=== PATIENT | female | born 1970 ===

== ENCOUNTER 2017-09-10 15:59 | Emergency (ER) | payer BC ==
[2017-09-10 16:09] VITALS: TEMP 98.6
[2017-09-10] MEDS ORDERED: Naproxen 550 mg Tab PO STA (18:00)
--- NOTE | 2017-09-10 18:06 | C.PDOC ---
Time Seen by Provider: 09/10/17 17:33 Chief Complaint (Nursing): Flu-like Symptoms History Per: Patient Onset/Duration Of Symptoms: Days (6) Current Symptoms Are (Timing): Still Present Associated Symptoms: Fever, Sore Throat, Cough, Nasal Congestion, Diarrhea Severity: Moderate Additional History Per: Prior Records Past Medical History Reviewed: Historical Data, Nursing Documentation, Vital Signs Vital Signs: Last Vital Signs Temp 98.6 F 09/10/17 16:06 Pulse 75 09/10/17 16:06 Resp 18 09/10/17 16:06 BP 125/84 09/10/17 16:06 Pulse Ox 100 09/10/17 18:06 - Medical History PMH: Asthma, Cardia Arrhythmia (NO MEDS) Surgical History: Cholecystectomy Family History: States: Unknown Family Hx - Social History Hx Alcohol Use: No Hx Substance Use: No - Immunization History Hx Tetanus Toxoid Vaccination: No Hx Influenza Vaccination: No Hx Pneumococcal Vaccination: No Review Of Systems Except As Marked, All Systems Reviewed And Found Negative. Constitutional: Positive for: Malaise ENT: Positive for: Nose Congestion Cardiovascular: Negative for: Chest Pain Respiratory: Positive for: Cough. Negative for: Hemoptysis Gastrointestinal: Negative for: Vomiting, Abdominal Pain Genitourinary: Negative for: Dysuria Musculoskeletal: Negative for: Neck Pain, Back Pain Skin: Negative for: Rash Neurological: Positive for: Headache. Negative for: Weakness, Numbness Physical Exam - Physical Exam Appears: Non-toxic, No Acute Distress Skin: Normal Color, Warm, Dry, No Rash Head: Atraumatic, Normacephalic Eye(s): bilateral: Normal Inspection, PERRL, EOMI Ear(s): Bilateral: Normal Oral Mucosa: Moist, No Drooling, No Trismus Throat: Erythema, No Exudate, No Drooling, No Mass Neck: Normal ROM, Supple Cardiovascular: Rhythm Regular Respiratory: Normal Breath Sounds, No Accessory Muscle Use Gastrointestinal/Abdominal: Soft, No Tenderness Back: No CVA Tenderness Extremity: Normal ROM Neurological/Psych: Oriented x3, Normal Speech, Normal Motor, Normal Sensation ED Course And Treatment O2 Sat by Pulse Oximetry: 100 Pulse Ox Interpretation: Normal - Radiology CXR: Interpreted by Me, Viewed By Me CXR Interpretation: Yes: Other (Increased interstitial markings) Reassessment Condition: Improved Disposition Counseled Patient/Family Regarding: Studies Performed, Diagnosis, Need For Followup, Rx Given - Disposition Disposition: HOME/ ROUTINE Disposition Time: 18:30 Condition: STABLE Additional Instructions: Drink plenty of fluids. Follow up with your doctor. Return to the ER if you develop shortness of breath, not tolerating fluids, worsening of symptoms or if you have any other concerns. Prescriptions: Albuterol HFA [Ventolin HFA 90 mcg/actuation (8 g)] 2 puff IH Q4 PRN #1 unit PRN Reason: Cough And Congestion Azithromycin [Zithromax] 1 dose PO DAILY #1 pkt Naproxen [Naprosyn] 1 tab PO BID PRN #20 tab PRN Reason: Pain Oxymetazoline 0.05% [Oxymetazoline HCl 30 Ml] 2 sprays NS BID #1 bottle Instructions: Acute Bronchitis (ED) Forms: [facility] ([place]) - Clinical Impression Clinical Impression: Influenza-like illness, Acute bronchitis
[2017-09-10] MEDS ORDERED: Naproxen 550 mg Tab PO ONE (18:11)
[2017-09-10 18:47] VITALS: BP 105/72; PULSE 69; RESP 16; O2SAT 99
--- NOTE | 2017-09-11 06:53 | RAD ---
Chest x-ray two views History: Cough. Shortness of breath. Comparison: None available. Findings: No focal infiltrate or effusion. Heart size within normal limits. Impression: No focal infiltrate or effusion.
== END 2017-09-10 18:47 | disposition home or self-care (01) ==
LOC: C.ER 15:59
DX: J11.1 Influenza due to unidentified influenza virus with other respiratory manifestations (principal); J20.9 Acute bronchitis, unspecified

== ENCOUNTER 2018-06-26 16:50 | Emergency (ER) | payer BC ==
[2018-06-26 17:03] VITALS: BP 139/91; PULSE 82; RESP 20; TEMP 98.5; O2SAT 98
[2018-06-26] MEDS ORDERED: Amoxicillin-Clav 875-125 mg Tab PO STA (17:27)
[2018-06-26] MEDS ORDERED: Tobramycin 0.3% OPHT SOLN OU STA (17:28)
[2018-06-26] MEDS ORDERED: Amoxicillin-Clav 875-125 mg Tab PO ONE (17:35)
--- NOTE | 2018-06-26 18:17 | C.PDOC ---
History Of Present Illness 48 y/o female presents to the ED complaining of cough, congestion, sore throat, right ear pain, and subjective fever for 2 days. Associated with bilateral increased tearing and burning sensation to eyes. She denies taking temperature at home or taking any medication for symptom relief prior to arrival. Also denies any SOB, wheezing, chest tightness, nausea, vomiting, or diarrhea. Time Seen by Provider: 06/26/18 17:21 Chief Complaint (Nursing): Cough, Cold, Congestion History Per: Patient History/Exam Limitations: no limitations Onset/Duration Of Symptoms: Days (x2) Current Symptoms Are (Timing): Still Present Past Medical History Reviewed: Historical Data, Nursing Documentation, Vital Signs Vital Signs: Last Vital Signs Temp 98.5 F 06/26/18 16:59 Pulse 82 06/26/18 16:59 Resp 20 06/26/18 16:59 BP 139/91 H 06/26/18 16:59 Pulse Ox 98 06/26/18 16:59 - Medical History PMH: Asthma, Cardia Arrhythmia (NO MEDS) Surgical History: Cholecystectomy Family History: States: Unknown Family Hx - Social History Hx Alcohol Use: No Hx Substance Use: No - Immunization History Hx Tetanus Toxoid Vaccination: No Hx Influenza Vaccination: No Hx Pneumococcal Vaccination: No Review Of Systems Except As Marked, All Systems Reviewed And Found Negative. Constitutional: Positive for: Fever (subjective), Chills Eyes: Positive for: Other (Increased tearing and "burning sensation" to b/l eyes) ENT: Positive for: Ear Pain, Nose Congestion, Throat Pain Cardiovascular: Negative for: Chest Pain Respiratory: Positive for: Cough. Negative for: Shortness of Breath, Wheezing Gastrointestinal: Negative for: Nausea, Vomiting, Diarrhea Physical Exam - Physical Exam Appears: Non-toxic, No Acute Distress Skin: Normal Color, Warm, Dry Head: Atraumatic, Normacephalic Eye(s): bilateral: PERRL, EOMI, Other (excessive tearing, mild conjunctival injection bilaterally) Ear(s): Left: Normal, Right: TM Erythema (bright erythema) Oral Mucosa: Moist Throat: Normal, No Erythema, No Exudate Neck: Supple Lymphatic: No Adenopathy Cardiovascular: Rhythm Regular, No Murmur Respiratory: No Rales, No Rhonchi, No Wheezing Extremity: Bilateral: Atraumatic, Normal Color And Temperature Neurological/Psych: Oriented x3, Normal Speech ED Course And Treatment O2 Sat by Pulse Oximetry: 98 (RA) Pulse Ox Interpretation: Normal Progress Note: Patient treated with PO Augmentin and IM Toradol for pain. Plan is to discharge home with Tobrex drops, antibiotics, and motrin. Counseled patient regarding diagnosis and follow-up instructions. Disposition - Disposition Referrals: Carlos Luna MD [Staff Provider] - Disposition: HOME/ ROUTINE Disposition Time: 18:15 Condition: STABLE Additional Instructions: FOLLOW UP WITH YOUR PMD AND ENT SPECIALIST WITHIN 1-2 DAYS. RETURN TO ED IF FEELS WORSE. Prescriptions: Amoxicillin/Clavulanate [Augmentin 875 MG-125 MG] 1 tab PO BID #20 tab Ibuprofen [Motrin Tab] 600 mg PO Q8 #30 tab Tobramycin 0.3% [Tobrex 0.3% Ophth Soln] 1 drop OU Q2 #1 bottle Instructions: Ear Infections (Otitis Media) ([place]), Conjunctivitis ([place]) Forms: [facility] ([place]), Work Excuse - Clinical Impression Clinical Impression: Otitis media, Conjunctivitis - PA / [employer] / Resident Statement MD/DO has reviewed & agrees with the documentation as recorded. - Scribe Statement The provider has reviewed the documentation as recorded by the Scribe (Lorraine Willis) All medical record entries made by the Scribe were at my direction and personally dictated by me. I have reviewed the chart and agree that the record accurately reflects my personal performance of the history, physical exam, medical decision making, and the department course for this patient. I have also personally directed, reviewed, and agree with the discharge instructions and disposition.
== END 2018-06-26 18:28 | disposition home or self-care (01) ==
LOC: C.ER 16:50
DX: H10.9 Unspecified conjunctivitis (principal); H66.91 Otitis media, unspecified, right ear
CPT/HCPCS: 96372; 99283; J1885